=== PATIENT | female | born 1990 | race Caucasian/White ===

== ENCOUNTER 2017-03-09 00:08 | Emergency (ER) | payer OTHER ==
[2017-03-09 00:13] VITALS: BP 130/83
== END 2017-03-09 01:04 | disposition left against medical advice (07) ==
LOC: ED 00:08
DX: Z53.21 Procedure and treatment not carried out due to patient leaving prior to being seen by health care provider (principal)

== ENCOUNTER 2017-03-10 11:33 | Inpatient (IN) | payer OTHER ==
[~2017-03-10] VITALS: Ht 162.6 cm; Wt 88.6 kg
[2017-03-10 11:59] LABS: BASOPHIL % 0.8 % (0-2); PLATELET COUNT 246 x10^3mcL (130-400); RED CELL DISTRIBUTION WIDTH 14.3 % (11.5-14.5)
[2017-03-10 12:03] LABS: CALCIUM 9.1 mg/dL (8.5-10.1); CARBON DIOXIDE 29.3 mmol/L (21-32); CHLORIDE SERUM 105 mmol/L (98-107); CREATININE SERUM 0.8 mg/dL (0.6-1.0); GFR1 > 60 mL/min; GLUCOSE SERUM 97 mg/dL (74-106); POTASSIUM SERUM 4.7 mmol/L (3.5-5.1); SODIUM SERUM 142 mmol/L (136-145)
[2017-03-10 12:07] LABS: ALBUMIN 3.8 g/dL (3.4-5.0); ALKALINE PHOSPHATASE 64 U/L (46-116); ALT/SGPT 36 U/L (14-59); AST/SGOT 14 U/L (15-37); BILIRUBIN TOTAL 0.3 mg/dL (0.20-1.00); TOTAL PROTEIN, SERUM 7.1 g/dL (6.4-8.2)
[2017-03-10 12:33] LABS: FREE T4 1.01 ng/dL (0.76-1.46); FREE THYROXINE INDEX 3.2 ug/dL (1.4-4.5); T4(THYROXINE) 8.9 ug/dL (4.7-13.3)
[2017-03-10 12:55] LABS: T3 TOTAL 1.07 ng/mL
[2017-03-10 14:30] VITALS: BP 101/67
[2017-03-10 14:46] VITALS: BP 101/67
[2017-03-10 15:15] LABS: CHOLESTEROL/HDL RATIO 2.9; MAGNESIUM 2.2 mg/dL (1.8-2.4); PHOSPHOROUS 3.5 mg/dL (2.5-4.9)
[2017-03-10 16:52] VITALS: BP 94/57
[2017-03-10 21:51] VITALS: BP 102/69
[2017-03-11 03:17] LABS: microscopic required? NO
[2017-03-11 03:45] LABS: UA SPECIFIC GRAVITY 1.015 (1.005-1.035); urine erythrocyte NEGATIVE (NEGATIVE)
[2017-03-11 03:53] LABS: AMPHETAMINE QUAL UR NONE DETECTED (NEG <=1000)
[2017-03-11 06:07] VITALS: BP 111/68
[2017-03-11 09:14] VITALS: BP 108/72
[2017-03-11 12:38] VITALS: BP 105/67
[2017-03-11 17:06] VITALS: BP 107/65
[2017-03-11 21:04] VITALS: BP 96/62
[2017-03-12 05:19] VITALS: BP 102/62
[2017-03-12 05:48] VITALS: BP 102/62
[2017-03-12 06:51] LABS: BASOPHIL % 0.4 % (0-2); PLATELET COUNT 240 x10^3mcL (130-400); RED CELL DISTRIBUTION WIDTH 14.1 % (11.5-14.5)
[2017-03-12 07:13] LABS: CARBON DIOXIDE 26.4 mmol/L (21-32); CHLORIDE SERUM 107 mmol/L (98-107); CREATININE SERUM 0.7 mg/dL (0.6-1.0); GFR1 > 60 mL/min; GLUCOSE SERUM 93 mg/dL (74-106); MAGNESIUM 2.3 mg/dL (1.8-2.4); PHOSPHOROUS 4.3 mg/dL (2.5-4.9); POTASSIUM SERUM 3.7 mmol/L (3.5-5.1); SODIUM SERUM 140 mmol/L (136-145)
== END 2017-03-12 06:43 | disposition home or self-care (01) | DRG 201 ==
LOC: ED 11:33 → DU 12:54
PROVIDERS: Emergency Medicine; Family Medicine; ADMIT Family Medicine
DX: I45.6 Pre-excitation syndrome (principal); I47.1 Supraventricular tachycardia; E66.9 Obesity, unspecified; Z68.33 Body mass index [BMI] 33.0-33.9, adult; J45.909 Unspecified asthma, uncomplicated; J66.2 Cannabinosis; E66.3 Overweight
CPT/HCPCS: 80307; 83880; 84439; 85378; J2060; J7030; Q0092